=== PATIENT | female | born 1990 ===

== ENCOUNTER 2024-07-04 09:45 | Outpatient (CLI) | payer OTHER | END 2024-07-04 09:46 | disposition home or self-care (01) | LOC: PRENATAL 09:45 | PROVIDERS: ATTEND Obstetrics & Gynecology Maternal & Fetal Medicine | DX: O26.849 Uterine size-date discrepancy, unspecified trimester (principal); O36.8199 Decreased fetal movements, unspecified trimester, other fetus; O43.90 Unspecified placental disorder, unspecified trimester; O34.40 Maternal care for other abnormalities of cervix, unspecified trimester; Z3A.33 33 weeks gestation of pregnancy ==